=== PATIENT | female | born 1985 | race Caucasian/White ===

== ENCOUNTER 2020-07-04 22:27 | Emergency (ER) | payer SELFPAY ==
[2020-07-04 22:33] VITALS: BP 101/42; PULSE 60; TEMP 99; BMI 26.4
--- NOTE | 2020-07-04 22:59 | PDOC ---
History of Present Illness - General Chief Complaint: Pain Stated Complaint: PAIN IN LEFT FOOT X 4 DAYS Time Seen by Provider: 07/04/20 22:29 - History of Present Illness Initial Comments: 07/04/20 23:10 Patient speaks mainly Hungarian and a friend is thread twister This otherwise healthy 35-year-old woman presents with left foot pain for the last 4 days. Patient states that the area at the base of her left great toe has been painful since 06/30. She had no known trauma to the area and has not changed footwear recently. 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 No previous history of foot pain/trauma. No history of gout in the patient or in any family member. No other joint swelling or redness. No history of fever or rash Patient has been taking acetaminophen and ibuprofen (OTC) without significant relief in her pain No daily medications Allergy: Iron supplements Non-smoker; no daily alcohol or other recreational drug use Patient has no general medical doctor Past History - Medical History Allergies/Adverse Reactions: Allergies Allergy/AdvReac Type Severity Reaction Status Date / Time iron Allergy Verified 07/04/20 22:58 Home Medications: Ambulatory Orders Naproxen [Naprosyn -] 500 mg PO BID PRN #14 tablet 07/04/20 COPD: No Other medical history: DENIES - Reproductive History Is Patient Now?: No - Psycho-Social/Smoking History Smoking History: Never smoked Have you smoked in the past 12 months: No Information on smoking cessation initiated: No - Substance Abuse Hx (Audit-C & DAST Scrn) How often the patient has a drink containing alcohol: Never Score: In Men: 4 or > Positive; In Women: 3 or > Positive: 0 Screen Result (Pos requires Nsg. Audit-10AR): Negative In the last yr the pt used illegal drug/Rx for NonMed reason: No Score: Yes response is considered Positive: 0 Screen Result (Positive result requires Nsg. DAST-10): Negative Review of Systems - Review of Systems Able to Perform ROS?: Yes Comments:: 12 point review of systems is negative except for what is noted in the history of present illness *Physical Exam - Vital Signs Last Vital Signs Temp Pulse Resp BP Pulse Ox 99 F 60 16 101/42 L 100 07/04/20 22:29 07/04/20 22:29 07/04/20 22:29 07/04/20 22:29 07/04/20 22:29 - Physical Exam GENERAL: Adult female, alert and oriented x3, no acute distress HEAD: Normal with no signs of trauma. EYES: PERRLA, EOMI, sclera anicteric, conjunctiva clear. NECK: Normal range of motion, supple without lymphadenopathy, JVD, or masses. ABDOMEN:.normal bowel sounds No guarding,tenderness or rebound.No masses No distention. EXTREMITIES: Left footmoderate tenderness, minimal edema first MTP joint; no erythema or increased warmth Pain reproduced with flexion and extension of MTP joint; remainder of the great toe is nontender and nonedematous Remainder of the extremity exam is normal NEUROLOGICAL: Cranial nerves II through XII grossly intact. Normal speech. No focal neurological deficits. SKIN: Warm, Dry, normal turgor, no rashes or lesions noted. Discharge - Discharge Information Problems reviewed: Yes Clinical Impression/Diagnosis: Foot sprain Qualifiers: Encounter type: initial encounter Laterality: left Qualified Code(s): S93.602A - Unspecified sprain of left foot, initial encounter Condition: Stable Disposition: HOME - Additional Discharge Information Prescriptions: Naproxen [Naprosyn -] 500 mg PO BID PRN #14 tablet PRN Reason: Pain - Follow up/Referral - Patient Discharge Instructions Patient Printed Discharge Instructions: DI for Foot Pain Additional Instructions: Elevate left foot is much as possible over the next 2 days Naproxen 500 mg twice a day as needed for pain; take with food Return to ER if you have swelling, redness or increased warmth in the area of pain Follow-up at [facility], [place] ([facility] [address])[phone] Print Language: UZBEK - Post Discharge Activity
[2020-07-04] MEDS ORDERED: KETOROLAC TROMETHAMINE 30 MG/1 ML VIAL IM ONE (23:31)
[2020-07-04] MEDS ORDERED: KETOROLAC TROMETHAMINE 30 MG/1 ML VIAL ONE (23:36)
== END 2020-07-04 23:48 | disposition home or self-care (01) ==
LOC: FER 22:27
PROC: 3E0233Z Introduction of Anti-inflammatory into Muscle, Percutaneous Approach (ICD-10-PCS; principal; 2020-07-04)
DX: S93.602A Unspecified sprain of left foot, initial encounter (principal)
CPT/HCPCS: 73630-TC-LT; 99284-25